=== PATIENT | male | born 1945 | race Hispanic/Latino ===

== ENCOUNTER 2021-01-21 20:27 | Emergency (ER) | payer OTHER, SELFPAY ==
[2021-01-21] MEDS ORDERED: Morphine 4 MG/ML VIAL ONE (21:29)
== END 2021-01-21 22:40 | disposition home or self-care (01) ==
LOC: ERS 20:27
DX: S39.012A Strain of muscle, fascia and tendon of lower back, initial encounter (principal); V49.9XXA Car occupant (driver) (passenger) injured in unspecified traffic accident, initial encounter; I10 Essential (primary) hypertension
CPT/HCPCS: 70450; 71045; 72125; 93005; 96372; G0390; J2270